=== PATIENT | female | born 1990 | race Caucasian/White ===

== ENCOUNTER 2023-07-05 00:55 | Emergency (ER) | payer SELFPAY ==
[~2023-07-05] VITALS: Ht 152.4 cm; Wt 46.7 kg
[2023-07-05] MEDS ORDERED: levETIRAcetam 250 MG TABLET ONE (01:28)
[2023-07-05] MEDS ORDERED: HYDROMORPHONE HCL 2 MG TABLET ONE ×3 (01:28→03:38)
[2023-07-05] MEDS ORDERED: ONDANSETRON ODT 4 MG TAB.RAPDIS ONE ×2 (01:29→01:42)
[2023-07-05] MEDS: levETIRAcetam 250 MG TABLET PO ONE (01:30)
[2023-07-05] MEDS: ONDANSETRON ODT 4 MG TAB.RAPDIS SL ONE ×2 (01:30→01:45)
[2023-07-05] MEDS: HYDROMORPHONE HCL 2 MG TABLET PO ONE ×3 (01:33→03:53)
[2023-07-05] MEDS ORDERED: HYDROCODONE/APAP 10-325 MG TABLET ONE (01:39)
[2023-07-05] MEDS: HYDROCODONE/APAP 10-325 MG TABLET PO ONE (01:45)
[2023-07-05] MEDS ORDERED: diphenhydrAMINE 25 MG CAP PO ONE (02:00)
[2023-07-05] MEDS: diphenhydrAMINE 25 MG CAP PO ONE (02:03)
[2023-07-05] MEDS ORDERED: LORAZEPAM 0.5 MG TABLET ONE (02:23)
[2023-07-05] MEDS: LORAZEPAM 0.5 MG TABLET PO ONE (02:47)
[2023-07-05] MEDS ORDERED: ONDA4TAB11 PO (03:45)
[2023-07-05] MEDS ORDERED: HYDR-3980 PO (03:45)
[2023-07-05] MEDS ORDERED: CYCL10TA9 PO (03:45)
[2023-07-05] MEDS ORDERED: OXYC-133 PO (03:57)
[2023-07-05 04:47] VITALS: BP 125/76; O2SAT 96
== END 2023-07-05 04:43 | disposition home or self-care (01) ==
LOC: ER 01:04
DX: S16.1XXA Strain of muscle, fascia and tendon at neck level, initial encounter (principal); S20.213A Contusion of bilateral front wall of thorax, initial encounter; M54.9 Dorsalgia, unspecified; R51.9 Headache, unspecified; J44.9 Chronic obstructive pulmonary disease, unspecified; F17.210 Nicotine dependence, cigarettes, uncomplicated; Z90.49 Acquired absence of other specified parts of digestive tract; Z79.899 Other long term (current) drug therapy; V89.2XXA Person injured in unspecified motor-vehicle accident, traffic, initial encounter; Y93.89 Activity, other specified; Y92.89 Other specified places as the place of occurrence of the external cause; Y99.8 Other external cause status
CPT/HCPCS: 70450; 71045; 72125; 73060; 73090; 73551; 73590; A4606; A4663; Q0162; Q0163